=== PATIENT | male | born 1970 ===

== ENCOUNTER 2023-04-30 10:26 | Outpatient (AMB) | payer OTHER, SELFPAY ==
--- NOTE | 2023-04-30 10:27 | MHC.OFFWIV ---
Intake Vital Signs 04/30/23 10:31 Height 5 ft 10 in Weight 268 lb BMI 38.4 BP 120/78 Blood Pressure Location Lt brachial Position Sitting Pulse 85 Pulse Source Pulse Oximeter Temp 97.9 F Temp Source Temporal Artery Scan Pulse Oximetry (%) 98 Oxygen Delivery Method Room Air Oxygen Flow Rate 97.9 Intake Visit Reasons: [employer]P [employer]/both ears blocked(lobby) Intake Note: pt is her today for both ear blocked started 1 week ago Patient Tobacco Use Status: Never used Tobacco Allergies No Known Allergies Allergy (Verified 04/30/23 10:35) Do you need a note to return to daycare/school/sports/work: Yes HPI EVP [employer]/both ears blocked(lobby) HPI Details This is a 52-year-old male patient who presents today with the sensation of blocked ears. States that he went to his PCP last week, and they recommended he start Debrox drops, which he has been administering daily. He states his hearing is very poor at this point. He denies any ear pain or fevers. Denies any upper respiratory symptoms. [facility] Social History Patient Tobacco Use Status: Never used Tobacco Review of Systems Const All systems reviewed & are unremarkable except as noted in HPI and below Physical Exam Const General: cooperative and no acute distress HEENT Head: Yes normal to inspection Ears: external ears normal, hearing grossly impaired bilaterally and unable to visualize TM (cerumen) bilaterally General nose exam: Normal external nose present, Normal nares present and Normal nasal mucous membranes and turbinates present Face and sinus: Yes normal facial exam Mouth: Normal oral and palatal mucosa present Resp Effort & Inspection: normal respiratory effort Auscultation: clear to auscultation bilaterally Skin General skin exam: no rashes or lesions noted Extrem General: Yes capillary refill normal and Yes no clubbing, cyanosis or edema Psych Appearance: grossly normal Mental Status: mental status grossly normal Speech and movement: Normal speech and movement present Office Procedures Cerumen Removal From which ear canal was the cerumen removed: bilateral Removal: irrigation and cerumen loop/spoon Notes: patient tolerated procedure well, no complications and ear canal clear [id number] Irrigation/Lavage Assessment & Plan Assessment & Plan (1) Impacted cerumen, bilateral: Code(s): H61.23 - Impacted cerumen, bilateral Plan: Irrigation of ears done bilaterally with good effect. Ear canals clear and TMs appear normal. Patient with significant hearing improvement following irrigation. Advised to not use Q-tips, and he may continue to use Debrox drops if he feels wax is accumulating again. Can return to the clinic as needed. Coding Level of Care Code Est Pt Level 3 (83429) Diagnoses Impacted cerumen, bilateral H61.23 CPT Codes Office Procedure - CPT: 60273-Qyp Irrigation/Lavage ([id number])
[2023-04-30 10:31] VITALS: BP 120/78; PULSE 85; TEMP 36.6; O2SAT 98; BMI 38.4
== END 2023-04-30 11:00 | disposition home or self-care (01) ==
PROVIDERS: Visit Provider Nurse Practitioner Family
DX: H61.23 Impacted cerumen, bilateral (principal)
CPT/HCPCS: 69210; 99213